=== PATIENT | male | born 1980 | race Caucasian/White ===

== ENCOUNTER 2016-12-23 21:58 | Emergency (ER) | payer SELFPAY ==
[2016-12-23 22:14] LABS: Hematocrit 41.8 % (42.0-52.0); Hemoglobin 14.8 gm/dL (13.5-18.0); Mean Cell Volume 89.9 fl (78-100); Mean Corpuscular Hemoglobin 31.8 pg (27-31); Mean Corpuscular Hgb Conc 35.4 g/dl (32-36); Mean Platelet Volume 10.3 fl (6.0-9.5); Neutrophil # 4.8 K/mm3 (1.3-6.0); Neutrophil % 52.9 % (42-75.0); Platelet Count 254 K/mm3 (150-450); Red Blood Count 4.65 M/mm3 (4.7-6.0); Red Cell Distribution Width 12.6 % (11.5-14.0)
--- NOTE | 2016-12-23 22:15 | ERNOTE ---
Chest Pain/Cardiac HPI Time Seen by Provider: 12/23/16 22:08 Source: patient Exam Limitations: no limitations Allergies/Adverse Reactions: Allergies No Known Allergies Allergy (Unverified 12/23/16 22:12) Home Medications: HOME MEDICATIONS Nabumetone 750 mg PO BID #30 tablet 12/23/16 [Last Taken Unknown] Narrative: Pt has had chest pain on the left side, lower chest throughout the day today. He was seen at [facility] earlier this evening and was given toradol and released. He states the toradol helped for a short time but the pain has returned. Pain worse with deep breaths. Timing: intermittent Severity/Quality: moderate, severe, sharp Location: left chest Activities at Onset: none Modifying Factors - Improves: Present: other - toradol Review of Systems - Review of Systems Constitutional: Present: diaphoresis. Absent: recent illness, fever EYE: Present: no symptoms reported ENT: Present: no symptoms reported Respiratory: Absent: shortness of breath, cough Cardiology: Present: See HPI Gastrointestinal/Abdominal: Absent: nausea, vomiting Genitourinary: Present: no symptoms reported Musculoskeletal: Present: no symptoms reported Skin: Present: no symptoms reported Neurological: Present: no symptoms reported Endocrine: Present: no symptoms reported Hematologic/Lymphatic: Present: no symptoms reported Psych: Present: no symptoms reported - Patient's Past Medical History Patient History - Medical: No pertinent hx Patient History - Cardiac/Respiratory: No pertinent hx Physical Exam - Physical Exam General Appearance: Present: wd/wn, alert, mild distress Head Exam: Present: normal inspection, no evidence of injury Eye Exam: Normal inspection: bilateral Neck: Present: normal inspection, nontender Respiratory: Present: no respiratory distress, normal breath sounds, lungs clear Cardiovascular/Chest: Present: regular rate, rhythm, no murmur. Absent: chest tenderness Back Exam: Present: normal range of motion Extremity Exam: Present: normal inspection, normal range of motion Neurological Exam: Present: alert, oriented Skin Exam: Present: normal color - With many tattoos, all in good condition, warm/dry Lymphatic Exam: Present: no adenopathy ED Progress - Results and Orders Patient's Lab Results:: I have reviewed the patient's lab results. Results and Orders: Laboratory Tests 12/23/16 12/23/16 12/23/16 22:09 22:09 22:09 WBC 9.0 Hgb 14.8 Hct 41.8 L Plt Count 254 D-Dimer 0.22 Sodium 140 Potassium 3.2 L Chloride 102 Carbon Dioxide 27.3 Anion Gap 13.9 H BUN 14 Creatinine 1.28 Est GFR (Non-Af Amer) 67 Random Glucose 107 Calcium 8.9 Total Bilirubin 0.7 AST 17 ALT 26 Alkaline Phosphatase 73 Troponin I Less than 0.017 Total Protein 7.7 Albumin 4.4 - Vital Signs Patient's Vital Signs:: I have reviewed the patient's vital signs. - EKG EKG: NSR EKG read: Interp. by me - Progress/Reassessment Progress Note-Subjective: 12/23/16 22:34 Received records from [facility] ED visit earlier this evening. Pt diagnosed with pleuritic chest pain. Given 30 mg toradol IV at 17:05 there Departure - Departure Clinical Impression: Pleuritic chest pain Disposition: Home self-care Condition: Good Instructions: Pleurisy Additional Instructions: Take the prescription medication as directed. Do not take ibuprofen or naproxen while taking this medication. You may take tylenol (acetaminophen) as needed. Prescriptions: Nabumetone 750 mg PO BID #30 tablet
[2016-12-23 22:23] VITALS: BP 133/99
[2016-12-23 22:33] LABS: ALT 26 U/L (19-67); AST 17 U/L (0-48); Albumin * 4.4 gm/dl (3.4-5.0); Alkaline Phosphatase * 73 U/L (50-170); Anion Gap 13.9 mmol/L (6.8-13.8); BUN/Creatinine Ratio 10.9 (9.0-21.6); Bilirubin, Total 0.7 mg/dL (0.0-1.1); Blood Urea Nitrogen 14 mg/dL (6-23); Ca. Corrected For Albumin 8.3 mg/dL (8.4-10.2); Calcium * 8.9 mg/dL (7.9-10.9); Carbon Dioxide 27.3 mmol/L (24-32.6); Chloride 102 mmol/L (97-106); Glucose * 107 mg/dL (70-110); Potassium 3.2 mmol/L (3.4-4.6); Sodium 140 mmol/L (132-142); Total Protein 7.7 gm/dL (6.2-8.2); Troponin I Less than 0.017 ng/ml (0.00-0.10)
[2016-12-23] MEDS ORDERED: KETOROLAC TROMETHAMINE 30 MG/ML VIAL ONE ×2 (23:08→23:17)
[2016-12-23] MEDS: KETOROLAC TROMETHAMINE 30 MG/ML VIAL IV ONE ×2 (23:10→23:16)
[2016-12-23] MEDS ORDERED: KETOROLAC TROMETHAMINE 60 MG/2 ML VIAL IM ONE (23:15)
== END 2016-12-23 23:22 | disposition home or self-care (01) ==
LOC: ER 21:58
DX: R07.1 Chest pain on breathing (principal)